=== PATIENT | female | born 1930 | race Caucasian/White ===

== ENCOUNTER 2018-04-28 13:17 | Inpatient (IN) | payer MEDICARE ==
[~2018-04-28] VITALS: Ht 157.5 cm; Wt 55.8 kg
[2018-04-28] MEDS ORDERED: NEXIUM40 MG PO (14:07)
[2018-04-28] MEDS ORDERED: ADVAIR 250-501 EACH INH (14:07)
[2018-04-28] MEDS ORDERED: LISINOPRIL-HCT1 EAC2 PO (14:07)
[2018-04-28] MEDS ORDERED: AMLODIPINE BESYL5 MG PO (14:07)
[2018-04-28] MEDS ORDERED: CITALOPRAM HBR20 MG PO (14:07)
[2018-04-28] MEDS ORDERED: HYDROCODON-ACE1 EAC9 PO (14:07)
[2018-04-28] MEDS ORDERED: METOPROLOL SUCC25 MG PO (14:07)
[2018-04-28] MEDS ORDERED: LEVSIN0.125 MG PO (14:07)
[2018-04-28] MEDS ORDERED: ATORVASTATIN CA40 MG PO (14:07)
[2018-04-28] MEDS ORDERED: CLOPIDOGREL75 MG PO (14:07)
[2018-04-28] MEDS ORDERED: ALBUTEROL2.5 MG/3 M INH (14:07)
[2018-04-28] MEDS ORDERED: TRAZODONE HCL100 MG PO (14:07)
[2018-04-28 15:01] LABS: BASOPHILS # (AUTO) 0.1 (0.0-0.1); BASOPHILS % 0.6 % (0.0-1.0); EOSINOPHILS # (AUTO) 0.2 (0.0-0.4); EOSINOPHILS % 2.1 % (0.0-6.0); HEMATOCRIT 28.6 % (34.2-44.1); LYMPHOCYTES # (AUTO) 2.1 (1.0-3.2); LYMPHOCYTES % 23.8 % (18.0-39.1); MEAN CORPUSCULAR HEMOGLOBIN 27.7 pg (28-32); MEAN CORPUSCULAR HGB CONC 31.5 g/dL (31-35); MONOCYTES # (AUTO) 0.8 (0.2-0.8); MONOCYTES % 8.5 % (4.4-11.3); NEUTROPHILS # (AUTO) 5.7 (2.1-6.9); NEUTROPHILS % 64.4 % (38.7-80.0); PLATELET COUNT 333 x10e3/uL (140-360); RED BLOOD COUNT 3.25 x10e6/uL (3.6-5.1); RED CELL DISTRIBUTION WIDTH 17.3 % (11.7-14.4)
[2018-04-28 15:05] LABS: INR 0.93; PROTHROMBIN TIME 13.3 seconds (11.9-14.5)
[2018-04-28 15:06] LABS: PARTIAL THROMBOPLASTIN TIME 30.3 seconds (23.8-35.5)
[2018-04-28 15:20] LABS: ALANINE AMINOTRANSFERASE 10 IU/L (0-55); ALKALINE PHOSPHATASE 82 IU/L (40-150); BLOOD UREA NITROGEN 10 mg/dL (7-26); BUN/CREATININE RATIO 13 (6-25); CALCIUM 7.6 mg/dL (8.4-10.2); CARBON DIOXIDE 27 mmol/L (22-29); CHLORIDE 103 mmol/L (98-107); CREATINE KINASE 61 IU/L (29-168); CREATININE, SERUM 0.78 mg/dL (0.57-1.11); EST GLOMERULAR FILTRATION RATE > 60 ML/MIN (60-); GLUCOSE 101 mg/dL (74-118); SODIUM 140 mmol/L (136-145)
[2018-04-28 15:24] LABS: MAGNESIUM 0.9 MG/DL (1.3-2.1)
[2018-04-28] MEDS ORDERED: POTASSIUM CHLORIDE 20 MEQ TAB CR PO ONE ×2 (15:43→21:00)
[2018-04-28] MEDS ORDERED: FUROSEMIDE INJ 10 MG/ML 4 ML VIAL IV ONE (15:45)
[2018-04-28] MEDS ORDERED: MAGNESIUM SULFATE 2GM/50ML 50 ML IV ONE (15:45)
--- NOTE | 2018-04-28 15:47 | Diagnostic Imaging Report ---
Examination: Single AP view of the chest. COMPARISON: None. INDICATION: Lower extremity edema DISCUSSION: Lines/tubes: None. Lungs: Central venous congestion. Prominent interstitial markings. Pleura: Small effusions. Heart and mediastinum: Prominent heart size. Bones and soft tissues: No acute bony abnormalities. IMPRESSION: Mild cardiomegaly with central venous congestion. Signed by: Dr. Maik Leon M.D. on 04/28/2018 3:43 PM
[2018-04-28 16:23] LABS: BILIRUBIN,URINE NEGATIVE (NEGATIVE); CLARITY,URINE SL CLOUDY (CLEAR); COLOR,URINE YELLOW (YELLOW); KETONES,URINE NEGATIVE (NEGATIVE); LEUKOCYTE ESTERASE ,URINE NEGATIVE (NEGATIVE); NITRITE,URINE NEGATIVE (NEGATIVE); PROTEIN,URINE DIPSTICK NEGATIVE (NEGATIVE); URINE UROBILINOGEN 0.2 mg/dL (0.2 - 1)
[2018-04-28 16:39] LABS: AMORPHOUS SEDIMENT,URINE MODERATE (FEW); BACTERIA,URINE FEW /HPF; EPITHELIAL CELLS,URINE MODERATE /LPF
[2018-04-28] MEDS ORDERED: ONDANSETRON HCL INJ 2 MG/ML VIAL IV PRN (18:00)
--- OUTSIDE RECORDS SUMMARY | 2018-04-28 18:17 | XMS REPORT ---
Author Author [facility] Address Unknown Phone Unavailable Care Team Providers Care Master At Arms Name Role Phone Karina CATALAN Unavailable Unavailable Problems This patient has no known problems. Allergies, Adverse Reactions, Alerts This patient has no known allergies or adverse reactions. Medications This patient has no known medications. Results Test Description Test Time Test Comments Text Results Atomic Results Result Comments CHEST SINGLE (PORTABLE) 2018-04-28 15:42:00 [place] [address] Patient Name: SEBLE CARTER MR #: [id number] : 1930 Age/Sex: 87/F Req #: [id number] Adm Physician: Ordered by: THOMPSON CATALAN MD Report #: [id number] Location: ER Room/Bed: Procedure: [id number] DX/CHEST SINGLE (PORTABLE) Exam Date: 04/28/18 Exam Time: 1528 REPORT STATUS: Signed Examination: Single AP view of the chest. CO MPARISON: None. INDICATION: Lower extremity edema DISCUSSION: Lines/tubes: None. Lungs: Central venous congestion. Prominent interstitial markings. Pleura: Small effusions. Heart and mediastinum: Prominent heart size. Bones and soft tissues: No acute bony abnormalities. IMPRESSION: Mild cardiomegaly with central venous congestion. Signed by: Dr. Lakeisha Shetty M.D. on 04/28/2018 3:43 PM Dictated By: LAKEISHA SHETTY MD [id number] Transcribed By: URSZULA on 04/28/18 1543 COPY TO: THOMPSON CATALAN MD
[2018-04-28 19:22] VITALS: BP 155/68
[2018-04-28 19:30] VITALS: BP 155/68
[2018-04-28] MEDS: FAMOTIDINE 20 MG/2 ML VIAL IV SCH (20:00)
[2018-04-28] MEDS ORDERED: MAGNESIUM SULF 1GRAM/DEXTROSE 100 ML IV ONE (21:00)
[2018-04-28] MEDS: HYDROCODONE/APAP 10MG-325MG TAB PO PRN (22:13)
[2018-04-28 22:49] LABS: CREATINE KINASE MB 3.7 ng/mL (0-5.0)
[2018-04-29] VITALS (8 sets, daily range): BP systolic 97–183; BP diastolic 40–77
[2018-04-29 05:44] LABS: BASOPHILS % 0.5 % (0.0-1.0); EOSINOPHILS # (AUTO) 0.2 (0.0-0.4); EOSINOPHILS % 3.4 % (0.0-6.0); HEMATOCRIT 25.5 % (34.2-44.1); LYMPHOCYTES # (AUTO) 1.9 (1.0-3.2); LYMPHOCYTES % 28.8 % (18.0-39.1); MEAN CORPUSCULAR HEMOGLOBIN 27.6 pg (28-32); MEAN CORPUSCULAR HGB CONC 31.4 g/dL (31-35); MEAN CORPUSCULAR VOLUME 87.9 fL (81-99); MONOCYTES # (AUTO) 0.7 (0.2-0.8); MONOCYTES % 10.1 % (4.4-11.3); NEUTROPHILS # (AUTO) 3.7 (2.1-6.9); NEUTROPHILS % 56.7 % (38.7-80.0); PLATELET COUNT 270 x10e3/uL (140-360); RED CELL DISTRIBUTION WIDTH 17.2 % (11.7-14.4)
[2018-04-29] MEDS: FAMOTIDINE 20 MG/2 ML VIAL IV SCH ×2 (06:00→17:10)
[2018-04-29 06:02] LABS: ALANINE AMINOTRANSFERASE 10 IU/L (0-55); ALBUMIN 2.5 g/dL (3.5-5.0); ALBUMIN/GLOBULIN RATIO 0.9 (0.8-2.0); ALKALINE PHOSPHATASE 65 IU/L (40-150); ANION GAP 12.3 mmol/L (8-16); BLOOD UREA NITROGEN 10 mg/dL (7-26); BUN/CREATININE RATIO 13 (6-25); CALCIUM 7.6 mg/dL (8.4-10.2); CARBON DIOXIDE 27 mmol/L (22-29); CHLORIDE 106 mmol/L (98-107); CHOL/HDL RATIO 2.6 (3.0-3.6); CHOLESTEROL 102 MD/DL (0-199); CREATININE, SERUM 0.77 mg/dL (0.57-1.11); EST GLOMERULAR FILTRATION RATE > 60 ML/MIN (60-); GLUCOSE 98 mg/dL (74-118); HDL CHOLESTEROL 39 MG/DL (40-60); LDL CHOLESTEROL 52 MG/DL (60-130); MAGNESIUM 1.6 MG/DL (1.3-2.1); POTASSIUM 3.3 mmol/L (3.5-5.1); SODIUM 142 mmol/L (136-145); TRIGLYCERIDES 53 MG/DL (0-149)
[2018-04-29 06:24] LABS: CREATINE KINASE MB 3.1 ng/mL (0-5.0)
[2018-04-29] MEDS ORDERED: METOPROLOL TARTRATE 25 MG TAB PO SCH (09:00)
[2018-04-29] MEDS: ASPIRIN 81 MG ENTERIC COATED PO SCH (09:38)
[2018-04-29] MEDS: CLOPIDOGREL BISULFATE 75 MG TAB PO SCH (09:38)
[2018-04-29] MEDS ORDERED: POTASSIUM CHLORIDE 20 MEQ TAB CR PO NR ×2 (10:00→12:00)
[2018-04-29] MEDS: LISINOPRIL 10 MG TAB PO SCH (10:06)
[2018-04-29] MEDS ORDERED: POTASSIUM CHLORIDE 10MEQ EA PO NR (12:15)
[2018-04-29] MEDS: HYDROCODONE/APAP 10MG-325MG TAB PO PRN ×2 (13:14→20:50)
[2018-04-29] MEDS: IPRATROPIUM BROMIDE 0.02% 2.5 ML NEB NEB PRN (19:20)
[2018-04-29] MEDS: ALBUTEROL SULF 0.083% NEB SOLN 3 ML NEB NEB PRN (19:22)
[2018-04-29] MEDS: ATORVASTATIN 20 MG TAB PO SCH (20:50)
[2018-04-29] MEDS ORDERED: NON-FORMULARY MEDICATION (Trazodone Hcl 200 MG) PO PRN (21:30)
--- NOTE | 2018-04-29 21:43 | Consultation ---
DATE OF CONSULTATION: April 29, 2018 REASON FOR THE CONSULTATION: Bilateral leg swelling with edema and weeping from the legs. HISTORY: An 87-year-old lady who has long-standing history of hypertension; COPD; prior CVA; bilateral carotid endarterectomy; coronary artery disease with severe disease that cannot be fixed by cardiac cath or surgery because of the small diffuse coronary artery disease; ex heavy smoker. Patient came to this institution because of bilateral leg swelling, progressively worse, worse on the right leg with small ulcer bilaterally and marked edema of both lower extremities. Patient had dressing and diuresis and with that she responded nicely. Her cardiac enzymes were normal. More importantly, her BNP was only at 320. Her chest x-ray showed mild congestion. She is anemic with hemoglobin of 8. Patient does have chronic problem for years. In June of this year, she was at [facility] where she had a cardiac catheterization that showed triple-vessel coronary artery disease, diffusely diseased, "cannot be fixed or cleaned." She also had severe carotid disease, she underwent left carotid endarterectomy. She had nice recovery from that stroke. She does have chronic shortness of breath, swelling of the lower extremities, failure to thrive . She is having repeated falls. She was placed in assisted living place for 6 weeks. Subsequently she was brought to her son's home, and it was noted there was swelling and the drainage from both legs. For that reason, she was brought to this institution. On admission, she was anemic, hypokalemic, hypomagnesemic. She had supplements. She had diuresis. She had dressing to the right leg and she has improvement. Today, she seems to be more comfortable. Cardiac richard, her activities are very limited. She does have easy fatigability and shortness of breath on exertion. There is no orthopnea. There is no paroxysmal nocturnal dyspnea. There is no angina. REVIEW OF SYSTEMS: Extensive to all systems, only positive ones would be mentioned; CARDIAC: As per above. PULMONARY: No cough. No hemoptysis. GI: No hematemesis. No melena. : No hematuria. No dysuria. MUSCULOSKELETAL: Limited activity. Tendency to fall. NEUROLOGICAL: She is a little bit weak but no localized deficits, "I have good recovery from my stroke. It was mini-stroke." OTHERS: Chronic swelling of the lower extremities with weeping from both lower extremities and presence of ulcer. Patient is sedentary to certain extent. SOCIAL HISTORY: She is a . She is ex-smoker. She is not alcohol drinker. HOME MEDICATIONS: Albuterol, Advair, amlodipine, Lipitor, Plavix, aspirin, Toprol-XL, lisinopril, and hydrochlorothiazide. ALLERGIES: PENICILLIN. PAST MEDICAL HISTORY 1. Peripheral arterial-vascular disease. 2. Right and left carotid endarterectomy. 3. Repeated TIAs and stroke secondary to carotid disease as per patient and family. 4. Hypertension. 5. COPD. 6. Congestive heart failure. 7. Degenerative joint disease. 8. Right hip replacement. 9. Cholecystectomy. 10. Right inguinal hernia surgery. 11. Right foot fracture. 12. Right and left carpal tunnel surgery. FAMILY HISTORY: Positive for high blood pressure and CAD. PHYSICAL EXAMINATION VITALS: Height of 5 feet 2 inches, weight of 122 pounds, blood pressure 120/50, heart rate of 50, respiratory rate of 18, temperature of 96 Fahrenheit. HEENT: Pupils are equal and reactive. NECK: No elevation of jugular venous pulsation. CHEST: Decreased lung expansion. HEART: PMI in fifth left intercostal space. Normal first and second heart sounds with soft ejection systolic murmur. ABDOMEN: Soft with good bowel sounds. EXTREMITIES: There is evidence of bilateral edema and skin wrinkling. There is evidence of small venous changes. There is already small skin break on the right heel. There are no pulses in the lower extremities. LAB DATA: Most recent potassium now at 3.3, BUN at 10, creatinine of 0.8, hemoglobin of only 8, hematocrit 25%. BNP of only 320. The lipid profile showed triglycerides of 53, cholesterol of 108, HDL of 39, and LDL of 52. EKG showing sinus bradycardia, poor R-wave progression, nonspecific ST changes. IMPRESSION AND PLAN 1. Bilateral leg swelling and evidence of severe venous insufficiency with ulcer. 2. Peripheral arterial-vascular disease. Patient already having beginning of skin break and changes and small ulcer on the right heel and redness on the left heel. 3. Debility. 4. Hypertension. 5. Carotid disease. 6. Advanced heart disease. 7. Chronic obstructive pulmonary disease. 8. Degenerative joint disease. 9. Anemia. RECOMMENDATIONS: Cardiac richard, recommendation will be for conservative approach, controlling blood pressure, adjusting diuresis as needed, continuation of KVNG inhibitors, decreasing the dose of Toprol because of relative bradycardia, workup for anemia. Long-term prognosis is guarded. Job#: [id number] LPA
[2018-04-29] MEDS: HYOSCYAMINE 0.125 MG TAB PO PRN (22:17)
[2018-04-29] MEDS: TRAZODONE HCL 50 MG TAB PO PRN (22:17)
[2018-04-30] VITALS (9 sets, daily range): BP systolic 111–181; BP diastolic 53–74
[2018-04-30] MEDS: FAMOTIDINE 20 MG/2 ML VIAL IV SCH ×2 (05:35→17:12)
[2018-04-30 06:07] LABS: BASOPHILS % 0.4 % (0.0-1.0); EOSINOPHILS # (AUTO) 0.2 (0.0-0.4); EOSINOPHILS % 2.4 % (0.0-6.0); HEMOGLOBIN 8.3 g/dL (12.0-16.0); LYMPHOCYTES % 22.8 % (18.0-39.1); MEAN CORPUSCULAR HEMOGLOBIN 28.6 pg (28-32); MEAN CORPUSCULAR HGB CONC 31.9 g/dL (31-35); MEAN CORPUSCULAR VOLUME 89.7 fL (81-99); MONOCYTES # (AUTO) 0.7 (0.2-0.8); MONOCYTES % 7.9 % (4.4-11.3); NEUTROPHILS # (AUTO) 5.8 (2.1-6.9); NEUTROPHILS % 65.5 % (38.7-80.0); PLATELET COUNT 295 x10e3/uL (140-360); RED CELL DISTRIBUTION WIDTH 17.3 % (11.7-14.4)
[2018-04-30 06:27] LABS: ALANINE AMINOTRANSFERASE 10 IU/L (0-55); ALBUMIN 2.6 g/dL (3.5-5.0); ALBUMIN/GLOBULIN RATIO 0.9 (0.8-2.0); ALKALINE PHOSPHATASE 63 IU/L (40-150); ANION GAP 10.4 mmol/L (8-16); BLOOD UREA NITROGEN 7 mg/dL (7-26); BUN/CREATININE RATIO 9 (6-25); CALCIUM 8.8 mg/dL (8.4-10.2); CARBON DIOXIDE 30 mmol/L (22-29); CHLORIDE 107 mmol/L (98-107); CHOL/HDL RATIO 2.7 (3.0-3.6); CHOLESTEROL 107 MD/DL (0-199); CREATININE, SERUM 0.75 mg/dL (0.57-1.11); EST GLOMERULAR FILTRATION RATE > 60 ML/MIN (60-); GLUCOSE 100 mg/dL (74-118); HDL CHOLESTEROL 39 MG/DL (40-60); LDL CHOLESTEROL 56 MG/DL (60-130); POTASSIUM 5.4 mmol/L (3.5-5.1); SODIUM 142 mmol/L (136-145); TRIGLYCERIDES 61 MG/DL (0-149)
[2018-04-30 06:48] LABS: THYROID STIMULATING HORMONE 1.144 uIU/mL (0.350-4.940)
[2018-04-30] MEDS: IPRATROPIUM BROMIDE 0.02% 2.5 ML NEB NEB PRN ×2 (07:28→18:45)
[2018-04-30] MEDS: ASPIRIN 81 MG ENTERIC COATED PO SCH (08:28)
[2018-04-30] MEDS: CITALOPRAM HYDROBROMIDE 20 MG TAB PO SCH (08:28)
[2018-04-30] MEDS: CLOPIDOGREL BISULFATE 75 MG TAB PO SCH (08:29)
[2018-04-30] MEDS: LISINOPRIL 10 MG TAB PO SCH (08:29)
[2018-04-30] MEDS: METOPROLOL SUCCINATE 25 MG TAB XL PO SCH (08:29)
[2018-04-30] MEDS ORDERED: AMLODIPINE BESYLATE 5 MG TAB PO SCH (09:00)
[2018-04-30] MEDS ORDERED: HYDROCHLOROTHIAZIDE 25 MG TAB PO SCH (09:00)
[2018-04-30] MEDS: HYDROCODONE/APAP 10MG-325MG TAB PO PRN ×2 (11:22→21:53)
[2018-04-30] MEDS: ALBUTEROL SULF 0.083% NEB SOLN 3 ML NEB NEB PRN (18:45)
[2018-04-30] MEDS: ATORVASTATIN 20 MG TAB PO SCH (20:19)
[2018-04-30] MEDS: HYOSCYAMINE 0.125 MG TAB PO PRN (20:19)
[2018-04-30] MEDS: TRAZODONE HCL 50 MG TAB PO PRN (20:19)
[2018-05-01 00:35] VITALS: BP 136/58
[2018-05-01] MEDS: ALBUTEROL SULF 0.083% NEB SOLN 3 ML NEB NEB PRN ×2 (04:20→07:22)
[2018-05-01] MEDS: IPRATROPIUM BROMIDE 0.02% 2.5 ML NEB NEB PRN ×2 (04:20→07:23)
[2018-05-01 05:32] VITALS: BP 129/57
[2018-05-01 05:48] LABS: ANION GAP 10.9 mmol/L (8-16); BLOOD UREA NITROGEN 9 mg/dL (7-26); BUN/CREATININE RATIO 13 (6-25); CALCIUM 8.4 mg/dL (8.4-10.2); CARBON DIOXIDE 29 mmol/L (22-29); CHLORIDE 105 mmol/L (98-107); CREATININE, SERUM 0.71 mg/dL (0.57-1.11); EST GLOMERULAR FILTRATION RATE > 60 ML/MIN (60-); GLUCOSE 105 mg/dL (74-118); POTASSIUM 3.9 mmol/L (3.5-5.1); SODIUM 141 mmol/L (136-145)
[2018-05-01] MEDS: FAMOTIDINE 20 MG/2 ML VIAL IV SCH (06:09)
[2018-05-01 08:00] VITALS: BP 136/73
[2018-05-01] MEDS: ASPIRIN 81 MG ENTERIC COATED PO SCH (09:00)
[2018-05-01] MEDS ORDERED: LISINOPRIL 10 MG TAB PO SCH (09:00)
[2018-05-01] MEDS: CITALOPRAM HYDROBROMIDE 20 MG TAB PO SCH (09:00)
[2018-05-01] MEDS: CLOPIDOGREL BISULFATE 75 MG TAB PO SCH (09:00)
[2018-05-01] MEDS ORDERED: HYDROCHLOROTHIAZIDE 25 MG TAB PO SCH (09:00)
[2018-05-01] MEDS: METOPROLOL SUCCINATE 25 MG TAB XL PO SCH (09:00)
[2018-05-01 12:00] VITALS: BP 189/75
[2018-05-01 16:00] VITALS: BP 197/75
--- NOTE | 2018-06-24 03:43 | Discharge Summary ---
CHIEF COMPLAINT: Swelling of lower extremities and dyspnea upon exertion. FINAL DIAGNOSES 1. Edema of lower extremities, resolved. 2. Hypertension. 3. Chronic obstructive pulmonary disease. DISPOSITION: Home with home health. HOSPITAL COURSE: This is an 87-year-old female with known history of hypertension, COPD, congestive heart failure, coronary artery disease, brought to the ER with a 3-month history of progressive swelling of her lower extremities and dyspnea upon exertion. Also lately has been having watery stools for the past 2 months. No other complaints. Evaluated in the emergency room. She was demonstrating 2+ pitting edema to the lower extremities and with further evaluation in the ER, she was admitted to the facility for care regarding evidence of the edema of the lower extremities, [id number] systolic congestive heart failure, hypomagnesemia, frequent watery stools, etiology uncertain. We will begin IV Lasix, requested cardiology followup. Home medications will continue. She was placed on the med/surg floor. She was on the cardiac diet. She was started on respiratory treatments, started also on aspirin 81 mg. Her daily medications were underway. She was receiving IV fluids. She was given hydrocodone for pain management. Initial electrolytes were showing a low potassium of 3.3 and she was being placed on replenished meds. Kidney function stable. Glucose 98. She was anemic showing findings hemoglobin of 8.9. She was reviewed with cardiology, Dr. Will, and his findings revealed severe coronary artery disease, severe peripheral vascular disease, venous insufficiency, COPD, and congestive heart failure. Recommending stopping the , increasing the lisinopril, increasing the hydrochlorothiazide. She began to feel better overall. She wanted to go home. Followup potassiums were now at 5. Followup hemoglobin 8.3. Final potassium 3.9. Final hemoglobin 8.3. The swelling of her lower extremities resolved. She was cleared for discharge home and released on May 01, 2018 in good condition. EKG just showing normal sinus rhythm. Cannot rule out anterior infarct, age undetermined. Lower extremity venous Dopplers were showing negative evidence for DVT bilaterally. Echocardiogram showing ejection fraction between 40% and 45% with no evidence of pericardial effusion. She was able to be discharged home. Case management assisted in replacement for home health. DISCHARGE MEDICATIONS: She will be continuing on medications of; 1. Albuterol sulfate 1 inhalation every 4 hours as needed for shortness of breath. 2. Atorvastatin calcium 40 mg daily. 3. Citalopram 20 mg daily. 4. Clopidogrel 75 mg daily. 5. Nexium 40 mg daily. 6. Advair 250/50 mcg 1 inhalation twice a day. 7. Acetaminophen/hydrocodone 10/325 mg 1 tablet every 6 hours as needed for pain. 8. Levsin 0.25 mg every 6 hours as needed for diarrhea. DISCHARGE INSTRUCTIONS: She be following up with her PCP within 2 to 3 weeks and will be calling him if she has any questions or concerns. Dictated By: MARIELY Vizcarra Job#: [id number] TRELL
== END 2018-05-01 18:15 | disposition home health service (06) | DRG 292 ==
LOC: ER 13:17 → ERHOLD 18:13 → MED/SURG3 18:17
DX: I11.0 Hypertensive heart disease with heart failure (principal); L97.411 Non-pressure chronic ulcer of right heel and midfoot limited to breakdown of skin; I50.23 Acute on chronic systolic (congestive) heart failure; I87.2 Venous insufficiency (chronic) (peripheral); I70.234 Atherosclerosis of native arteries of right leg with ulceration of heel and midfoot; E87.6 Hypokalemia; E83.42 Hypomagnesemia; R53.81 Other malaise; J44.9 Chronic obstructive pulmonary disease, unspecified; E78.5 Hyperlipidemia, unspecified; I25.10 Atherosclerotic heart disease of native coronary artery without angina pectoris; D64.9 Anemia, unspecified; R62.7 Adult failure to thrive; I08.1 Rheumatic disorders of both mitral and tricuspid valves; I25.2 Old myocardial infarction; R19.7 Diarrhea, unspecified; Z79.02 Long term (current) use of antithrombotics/antiplatelets; R10.13 Epigastric pain
CPT/HCPCS: 36415; 71045; 80048; 80053; 80061; 81001; 82270; 82550; 82553; 83735; 83880; 84132; 84443; 84484; 85025; 85610; 85730; 87086; 93005; 93306; 93970; 94640; 99284; J1940; J3475